=== PATIENT | female | born 1980 | race American Indian/Alaskan Native ===

== ENCOUNTER 2016-12-14 08:26 | Observation (INO) | payer MEDICAID ==
[2016-12-14 09:03] VITALS: BMI 33.9
[2016-12-14 09:04] VITALS: TEMP 97.5
[2016-12-14] MEDS ORDERED: Sodium Chloride 0.9% 1,000 ML IV ONE (09:42)
[2016-12-14 09:59] LABS: ADD MANUAL DIFF? NO
[2016-12-14 10:01] LABS: BASO # 0.01 K/mm3 (0.0-2.0); BASO % 0.2 % (0.0-3.0); EOS # 0.1 (0.0-0.7); EOS % 1.2 % (1.5-5.0); GRAN # 2.71 (1.4-6.5); GRAN % 54.7 % (50.0-68.0); HEMATOCRIT 27.9 % (36.0-48.0); LYMPH # 1.9 (1.2-3.4); LYMPH % 37.6 % (22.0-35.0); MEAN CELL VOLUME 76.6 fL (80.0-105.0); MEAN CORPUSCULAR HEMOGLOBIN 25.3 pg (25.0-35.0); MEAN PLATELET VOLUME 8.9 fl (7.0-11.0); MONO # 0.3 (0.1-0.6); MONO % 6.3 % (1.0-6.0); PLATELET COUNT 272 10^3/uL (120.0-450.0); RED CELL DISTRIBUTION WIDTH 16.2 % (11.5-14.5); VENOUS BLOOD GAS BASE EXCESS -0.3 mmol/L (0.0-2.0); VENOUS BLOOD PH 7.41 (7.32-7.43)
[2016-12-14 10:11] LABS: ALB/GLOB RATIO 0.8 (1.1-1.8); ALKALINE PHOSPHATASE 89 U/L (38-133); ALT/SGPT 19 U/L (7-56); AST/SGOT 12 U/L (15-39); BILIRUBIN,TOTAL 0.4 mg/dL (0.2-1.3); BLOOD UREA NITROGEN 18 mg/dL (7-21); CALCIUM 8.7 mg/dL (8.4-10.5); CARBON DIOXIDE 23 mmol/L (21-33); CHLORIDE 96 mmol/L (98-107); GFR AFRICAN-AMERICAN > 60; MAGNESIUM 1.8 mg/dL (1.7-2.2); PHOSPHOROUS 2.9 mg/dL (2.5-4.5); POTASSIUM 3.9 mmol/L (3.6-5.0); SODIUM 128 mmol/L (132-148); TOTAL PROTEIN 7.9 g/dL (5.8-8.3)
[2016-12-14] MEDS ORDERED: Insulin Regular 1 UNITS/0.01 ML ML SC STA ×2 (10:13→12:05)
[2016-12-14 10:16] LABS: INR 0.98 (0.93-1.08); PARTIAL THROMBOPLASTIN TIME 27.1 Seconds (23.7-30.8)
[2016-12-14 10:19] LABS: GLUCOSE,RANDOM 457 mg/dL (70-110)
[2016-12-14] MEDS ORDERED: Sodium Chloride 0.9% 1,000 ML IV STA (10:20)
--- NOTE | 2016-12-14 10:26 | ED PDOC ---
Arrival/HPI - General Chief Complaint: High Blood Sugar Time Seen by Provider: 12/14/16 09:26 Historian: Patient - History of Present Illness Narrative History of Present Illness (Text): 12/14/16 10:19 Sis Mulligan is a 36 year old female, with a history of diabetes and right BKA , presents to the emergency department for elevated blood glucose level. Patient came to [facility] today for wound care, currently undergoing hyperbaric chamber therapy, and was sent to emergency department for further evaluation for hyperglycemia because the treatment cannot be performed with a elevated glucose level. Patient states she has not eaten breakfast today. Denies any complaints. Currently asymptomatic. Time/Duration: Prior to Arrival Symptom Onset: Gradual Symptom Course: Unchanged Severity Level: Mild Activities at Onset: Light Past Medical History - Provider Review Nursing Documentation Reviewed: Yes - Infectious Disease Hx of Infectious Diseases: None - Endocrine/Metabolic Hx Diabetes Mellitus Type 1: Yes - Psychiatric Hx Substance Use: No - Surgical History Other/Comment: R bka 2007. L foot 2007 - Anesthesia Hx Anesthesia Reactions: No Hx Malignant Hyperthermia: No Family/Social History - Physician Review Nursing Documentation Reviewed: Yes Family/Social History: No Known Family HX Smoking Status: Never Smoked Hx Alcohol Use: No Hx Substance Use: No Allergies/Home Meds Allergies/Adverse Reactions: Allergies No Known Allergies Allergy (Verified 11/15/16 16:12) Home Medications: Home Meds Medication Instructions Recorded Confirmed Insulin Glargine, Recombina 45 units SQ DAILY 12/14/16 12/14/16 [Lantus] Review of Systems - Review of Systems Systems not reviewed;Unavailable: Language Barrier Constitutional: absent: Fatigue, Fevers Respiratory: Normal. absent: SOB, Cough Cardiovascular: Normal. absent: Chest Pain Neurological: Normal. absent: Headache, Dizziness Psychiatric: Normal Physical Exam Vital Signs Reviewed: Yes Vital Signs Temp Pulse Resp BP Pulse Ox 12/14/16 14:43 72 18 107/64 100 12/14/16 11:42 75 18 107/64 100 12/14/16 10:40 85 16 120/69 99 12/14/16 08:27 97.5 F L 84 18 114/67 96 Temperature: Afebrile Blood Pressure: Normal Pulse: Regular Respiratory Rate: Normal Appearance: Positive for: Well-Appearing, Non-Toxic, Comfortable Pain Distress: None Mental Status: Positive for: Alert and Oriented X 3 Finger Stick Blood Glucose: 273 - Systems Exam Head: Present: Atraumatic, Normocephalic Pupils: Present: PERRL Conjunctiva: Present: Normal Respiratory/Chest: Present: Clear to Auscultation, Good Air Exchange. No: Respiratory Distress, Accessory Muscle Use Cardiovascular: Present: Regular Rate and Rhythm, Normal S1, S2. No: Murmurs Upper Extremity: Present: Normal Inspection. No: Cyanosis, Edema Lower Extremity: Present: Other (right BKA, left foot ampuatation with open wound. healing skin. no foul odor. no warmth. no pus. wound properly dressed. ) . No: Edema, CALF TENDERNESS Neurological: Present: GCS=15, CN II-XII Intact, Speech Normal Skin: Present: Warm, Dry, Normal Color. No: Rashes Psychiatric: Present: Alert, Oriented x 3, Normal Insight, Normal Concentration Medical Decision Making ED Course and Treatment: 12/14/16 10:28 Impression: A 36 year old female who presents to the emergency department for elevated blood glucose level. Differential Diagnosis include but are not limited to: uncontrolled diabetes. Plan: -- EKG -- Chest X-ray -- Labs -- Insulin -- IV fluids -- Blood culture -- Urine culture -- Urinalysis -- Reassess and disposition Progress Notes: 12/14/16 10:30 EKG interpreted by me: NSR @ 79 bpm. T wave inversion in lead I. 12/14/16 09:[address] patient on EDObs to monitor blood glucose level and manage pain. After evaluating her left leg wound it was wrapped up by our EMT Hunter. ILIR Cartagena sent a wound culture. - Medication Orders Current Medication Orders: Discontinued Medications Sodium Chloride (Sodium Chloride 0.9%) 1,000 mls @ 2,000 mls/hr IV .Q30M ONE Stop: 12/14/16 10:11 Last Admin: 12/14/16 10:02 Dose: 2,000 MLS/HR eMAR Start Stop Document 12/14/16 10:02 VIRGIE (Rec: 12/14/16 10:02 [facility]IRGIE [facility] [id number]) Intravenous Solution Start Date 12/14/16 Start Time 10:02 End Date 12/14/16 End time 11:02 Total Infusion Time 60 Sodium Chloride (Sodium Chloride 0.9%) 1,000 mls @ 999 mls/hr IV .Q1H1M STA Stop: 12/14/16 11:20 Last Admin: 12/14/16 11:34 Dose: 999 MLS/HR eMAR Start Stop Document 12/14/16 11:34 SRE (Rec: 12/14/16 11:34 SRE [id number]) Intravenous Solution Start Date 12/14/16 Start Time 11:34 End Date 12/14/16 End time 12:30 Total Infusion Time 56 Insulin Human Regular (Humulin R) 10 units SC STAT STA Stop: 12/14/16 10:14 Last Admin: 12/14/16 10:26 Dose: 10 UNITS Subcutaneous Administrations Document 12/14/16 10:26 JOL (Rec: 12/14/16 10:26 [id number] Charges for Administration # of Subcutaneous Administrations 1 Insulin Human Regular (Humulin R) 6 units SC STAT STA Stop: 12/14/16 12:06 Last Admin: 12/14/16 12:26 Dose: 6 UNITS MAR Blood Glucose Document 12/14/16 12:26 JOL (Rec: 12/14/16 12:26 [id number] Blood Glucose Finger Stick Blood Glucose (70-120) 330 Subcutaneous Administrations Document 12/14/16 12:26 JOL (Rec: 12/14/16 12:26 [id number]) Charges for Administration # of Subcutaneous Administrations 1 Ketorolac Tromethamine (Toradol) 30 mg IVP STAT STA Stop: 12/14/16 10:32 Last Admin: 12/14/16 10:43 Dose: 30 MG IVP Administration Document 12/14/16 10:43 JOL (Rec: 12/14/16 10:43 [id number]) Charges for Administration # of IVP Administrations 1 ED OBSERVATION Date of observation admission: 12/14/16 Time of observation admission: 09:40 - Observation admission statement Patient is being placed in observation because:: Elevated Glucose level - Goals of Observation Goals of observation are:: monitor glucose level and manage pain. - Progress Note Progress Note: 12/14/16 10:14 - Treated with insulin. 12/14/16 11:40 - Additional IVF added. 12/14/16 12:06 - Patient's glucose elevated and treated with insulin. 12/14/16 14:45 - Patient's glucose improved. Patient states she will continue to take her insulin and medications as prescribed. His wound is already managed as an outpatient with PO antibiotics and wound care by a retail loss prevention specialist and electrical manufacturing engineer. She says its looking great. She says she has daily appointments with the chamber here at [facility]. She also has f/u with her doctors. Patient feels comfortable going home. - Scribe Statement The provider has reviewed the documentation as recorded by the Lety Carpenter Provider Attestation: All medical record entries made by the Lety were at my direction and personally dictated by me. I have reviewed the chart and agree that the record accurately reflects my personal performance of the history, physical exam, medical decision making, and the department course for this patient. I have also personally directed, reviewed, and agree with the discharge instructions and disposition. Disposition/Present on Arrival - Present on Arrival Any Indicators Present on Arrival: Yes History of DVT/PE: No History of Uncontrolled Diabetes: Yes Urinary Catheter: No History of Decub. Ulcer: No History Surgical Site Infection Following: None - Disposition Have Diagnosis and Disposition been Completed?: Yes Diagnosis: Hyperglycemia Disposition: HOME/ ROUTINE Disposition Time: 09:45 Patient Plan: Discharge Patient Problems: Current Active Problems Problem Status Diagnosed Hyperglycemia Acute Condition: IMPROVED
[2016-12-14 11:25] LABS: ERYTHROCYTE SEDIMENTATION RATE 60 mm/hr (0.0-20.0)
[2016-12-14 11:49] VITALS: BP 107/64; RESP 18; O2SAT 100
[2016-12-14 12:28] LABS: URINE BILIRUBIN NEGATIVE (NEGATIVE); URINE BLOOD NEGATIVE (NEGATIVE); URINE GLUCOSE (UA) >=1000 mg/dL (NEGATIVE); URINE KETONE NEGATIVE (NEGATIVE); URINE LEUKOCYTE ESTERASE NEGATIVE Leu/uL (NEGATIVE); URINE PROTEIN NEGATIVE mg/dL (<30 mg/dL); URINE UROBILINOGEN 0.2 E.U./dL (<1 E.U./dL)
[2016-12-14 12:33] LABS: URINE APPEARANCE CLEAR (CLEAR); URINE COLOR YELLOW (YELLOW)
--- NOTE | 2016-12-14 12:51 | RAD ---
HISTORY: Sepsis Patient COMPARISON: No prior. FINDINGS: LUNGS: No active pulmonary disease. PLEURA: No significant pleural effusion identified, no pneumothorax apparent. CARDIOVASCULAR: Normal. OSSEOUS STRUCTURES: No significant abnormalities. VISUALIZED UPPER ABDOMEN: Normal. OTHER FINDINGS: None. IMPRESSION: No active disease.
[2016-12-14 14:44] VITALS: PULSE 72
--- NOTE | 2016-12-15 18:10 | CARD ---
APPROVED REPORT EKG Measurement Heart [id number] <Conclusion> Normal sinus rhythm Normal ECG
== END 2016-12-14 14:56 | disposition home or self-care (01) ==
LOC: ED 08:26 → EROBSV 09:42
PROVIDERS: ADMIT Emergency Medicine; ATTEND Emergency Medicine
DX: E10.65 Type 1 diabetes mellitus with hyperglycemia (principal); Z79.4 Long term (current) use of insulin
CPT/HCPCS: 71010; 80053; 81003; 82803; 82948; 83735; 84100; 84702; 85025; 85610; 85651; 85730; 87040; 87070; 87086; 93005; 96361; 96374; 99284; G0378; J1885; J7040